=== PATIENT | female | born 1995 | race Caucasian/White ===

== ENCOUNTER 2017-08-24 10:13 | Day surgery (SDC) | payer OTHER ==
[~2017-08-24] VITALS: Ht 172.7 cm; Wt 72.6 kg
[~2017-08-24 10:13] MED LIST: BIRTH CONTROL; FLEXERIL10 MG PO; FOLIC ACID0.4 MG PO; KEPPRA500 MG PO; PRENATAL TABLE1 EAC3 PO; ZOLOFT50 MG PO
[2017-08-24 10:28] VITALS: BP 130/72
[2017-08-24 10:32] VITALS: BP 130/72
[2017-08-24 12:40] VITALS: BP 109/57
[2017-08-24 13:46] VITALS: BP 136/67
== END 2017-08-24 13:45 | disposition home or self-care (01) ==
LOC: SDC 10:13
PROC: 10D17ZZ Extraction of Products of Conception, Retained, Via Natural or Artificial Opening (ICD-10-PCS; principal; 2017-08-24)
DX: O02.1 Missed abortion (principal)
CPT/HCPCS: 86850; 86900; 86901; 88305; J0131; J0171; J1100; J1170; J1885; J2175; J2210; J2250; J2405; J3010